=== PATIENT | female | born 1980 | race Caucasian/White ===

== ENCOUNTER 2017-09-10 05:46 | Inpatient (IN) | payer OTHER ==
--- NOTE | 2017-08-25 13:15 | GHP ---
[f rep st] PREOP HISTORY AND PHYSICAL DATE OF ADMISSION: 09/10/2017 CURRENT COMPLAINTS: Right hip pain. HISTORY OF PRESENT ILLNESS: The patient is a 36-year-old female with significant left hip pain, wors ening with use and with time, despite multiple conservative measures to include prior surgeries. She wished to have surgery in order to resolve the problem. ALLERGIES: Include amoxicillin, cephalexin, latex, penicillins and Singulair. MEDICATION: Include bupropion, amphetamine, ibuprofen, nitrofurantoin, ProAir, valacyclovir, Ventoli n and Zyrtec. MEDICAL PROBLEMS: Include arthritis, asthma. PRIOR SURGERIES: Include a x3, orthopedic surgery x3 with ACL, excision of the hand cyst a nd other surgery x4. SOCIAL HISTORY: She is a former smoker. Social drinker. PHYSICAL EXAMINATION: HEENT: The pupils are equal, round, and reactive to light. CHEST: Clear to auscultation. HEART: Regular rate and rhythm. ABDOMEN: Soft and nontender. HIPS: Her hip has si gnificant decrease in range of motion, particularly to internal and external rotation. She is neurol ogically intact distally. IMAGING: X-ray exam reveals [id number] osteoarthritic changes, as well as dysplasia. ASSESSMENT/PLAN: Patient is status post right hip osteoarthritis. Plan is to take her to the operat ing room to undergo a right total hip arthroplasty. /[id number]/MODL
[2017-09-10] MEDS ORDERED: LR 1,000 ML IV ONE (06:31)
[2017-09-10] MEDS ORDERED: LIDOCAINE 1% 2 ML INJ ID PRN (06:34)
[2017-09-10] MEDS ORDERED: MIDAZOLAM 2 MG/2 ML VIAL IVP ONE (06:56)
[2017-09-10] MEDS ORDERED: BUPIVACAINE/EPI 0.5% 30 ML SDV ONE (06:58)
[2017-09-10] MEDS ORDERED: TRANEXAMIC ACID 3,000 MG/50 ML BAG IRR ONE (06:58)
[2017-09-10] MEDS ORDERED: THROMBIN (BOVINE) 5,000 UNIT VIAL TP ONE (06:58)
[2017-09-10] MEDS ORDERED: CALCIUM CHLORIDE 1 GM/10 ML INJ ONE (06:58)
[2017-09-10] MEDS ORDERED: POLYMYXIN B SULFATE 500,000 UNIT/10 ML SYR IRR ONE (06:59)
[2017-09-10] MEDS ORDERED: BACITRACIN 50,000 UNITS/10 ML SYR IRR ONE (06:59)
--- NOTE | 2017-09-10 07:05 | PDANEPAE ---
ANE History of Present Illness here for R AKOSUA ANE Past Medical History - Cardiovascular History Hx Hypertension: No Hx Arrhythmias: No Hx Chest Pain: No Hx Coronary Artery / Peripheral Vascular Disease: No Hx CHF / Valvular Disease: No Hx Palpitations: No - Pulmonary History Hx COPD: No Hx Asthma/Reactive Airway Disease: Yes Hx Recent Upper Respiratory Infection: No Hx Oxygen in Use at Home: No Hx Sleep Apnea: No Sleep Apnea Screening Result - Last Documented: Negative Pulmonary History Comment: allergy induced asthma managed w/inhaler - Neurologic History Hx Cerebrovascular Accident: No Hx Seizures: No Hx Dementia: No - Endocrine History Hx Diabetes: No - Renal History Hx Renal Disorders: No Renal History Comment: tx for UTI in - Liver History Hx Hepatic Disorders: No - Neurological & Psychiatric Hx Hx Neurological and Psychiatric Disorders: Yes Neurological / Psychiatric History Comment: ADHD -well managed w/RX - Cancer History Hx Cancer: No - Congenital Disorder History Hx Congenital Disorders: No - GI History Hx Gastrointestinal Disorders: No - Other Health History Other Health History: R hip pain,OA L hip,bilat knees - Chronic Pain History Chronic Pain: Yes (R hip) - Surgical History Prior Surgeries: meniscal repair. patella sx. hardware removal (patella). lap hortensia. UPPP. R hip labral repair. ACL -bilat x2. lipoma wrist excision. C Section x3. D and C ANE Review of Systems Review of systems is: negative Review of Systems: - Exercise capacity Exercise capacity: >=4 METS METS (RN): 4 METS ANE Patient History - Allergies Allergies/Adverse Reactions: cephalexin [From Keflex] Allergy (Intermediate, Verified 09/10/17 06:14) Other-Enter Comments latex [Latex] Allergy (Intermediate, Verified 09/10/17 06:14) Other-Enter Comments montelukast [From Singulair] Allergy (Intermediate, Verified 09/10/17 06:14) Hives Coban Allergy (Intermediate, Uncoded 09/10/17 06:20) Other-Enter Comments - Home Medications Home medications: home medication list seen and reviewed Home Medications: Albuterol Hfa Anes Only [Proair Hfa Icu (*)] 1 - 2 puffs IH QID PRN 08/23/17 [ Last Taken 09/10/17 05:45] Cetirizine [ZyrTEC 10 mg (*)] 10 mg PO DAILY 08/23/17 [Last Taken 09/10/17 05:45 ] Herbals/Supplements -Info Only 1 ea PO DAILY 08/23/17 [Last Taken 2 Weeks Ago ~ 08/27/17] Ibuprofen [Motrin (*)] 800 mg PO Q6 PRN 08/23/17 [Last Taken 09/01/17] Lisdexamfetamine Dimesylate [Vyvanse] 60 mg PO DAILY 08/23/17 [Last Taken ] [place]-3 Fatty Acids [Fish Oil 1000 mg (*)] 2,000 mg PO DAILY 08/23/17 [Last Taken 2 Weeks Ago ~08/27/17] buPROPion XL [Wellbutrin Xl] 450 mg PO DAILY 08/23/17 [Last Taken 09/09/17] traMADol [Ultram 50 mg (*)] 09/10/17 [Last Taken 09/09/17] - NPO status NPO Since - Liquids (Date): 09/09/17 NPO Since - Liquids (Time): 21:45 NPO Since - Solids (Date): 09/09/17 NPO Since - Solids (Time): 19:00 - Smoking Hx Smoking Status: Former smoker ANE Labs/Vital Signs - Vital Signs Vital Signs: reviewed preoperatively; see RN documention for details Blood Pressure: 123/92 Heart Rate: 96 Respiratory Rate: 16 O2 Sat (%): 96 Height: 167.64 cm Weight: 81.647 kg ANE Physical Exam - Airway Neck exam: FROM Mallampati Score: Class 1 - Pulmonary Pulmonary: no respiratory distress - Cardiovascular Cardiovascular: regular rate and rhythym - ASA Status ASA Status: II ANE Anesthesia Plan Anesthesia Plan: MAC, spinal
[2017-09-10] MEDS ORDERED: fentaNYL 100 MCG/2 ML INJ ONE ×4 (07:09→11:05)
[2017-09-10] MEDS ORDERED: PROPOFOL/EMULSION 500 MG/50 ML BOTTLE IV ONE ×2 (07:10→08:13)
[2017-09-10] MEDS ORDERED: PREGABALIN 150 MG CAP PO ONE (07:13)
[2017-09-10] MEDS ORDERED: TRANEXAMIC ACID 3,000 MG in NS (SYRINGE) 50 ML IRR ONE (07:13)
[2017-09-10] MEDS ORDERED: VANCOMYCIN PHARMACY TO DOSE MISC ONE (07:13)
[2017-09-10] MEDS ORDERED: ACETAMINOPHEN 500 MG TAB PO ONE (07:13)
[2017-09-10] MEDS ORDERED: ROPIVACAINE 0.2% 80 MG, EPINEPHrine 0.2 MG, KETOROLAC TROMETHAMINE 30 MG, morphINE 10 M... IU ONE (07:13)
--- NOTE | 2017-09-10 07:13 | PDHPUP ---
History & Physical Update H&P update statement: This history and physical update is based on an assessment of the patient which was completed after admission or registration (within 24 hours), but prior to the surgery/procedure. H&P update: H&P reviewed & patient examined, no change in patient's condition since H&P completed
[2017-09-10] MEDS ORDERED: ALBUTEROL 60 PUFFS/8 GM MDI IH PRN (07:14)
[2017-09-10] MEDS ORDERED: BUPI/epINEPH/KETOROLAC/morphINE IU ONE (07:30)
[2017-09-10] MEDS ORDERED: VANCOMYCIN 1.25 GM in NS 250 ML IV ONE (07:30)
[2017-09-10] MEDS ORDERED: ONDANSETRON 4 MG/2 ML VIAL IVP PRN ×2 (08:07→09:43)
[2017-09-10] MEDS ORDERED: PROMETHAZINE HCL 25 MG/ML INJ IVP PRN ×2 (08:07→09:43)
[2017-09-10] MEDS ORDERED: DEXAMETHASONE 4 MG/ML VIAL IVP PRN (08:07)
[2017-09-10] MEDS ORDERED: ALBUTEROL 3 ML DEYVIAL IH PRN (08:07)
[2017-09-10] MEDS ORDERED: NALOXONE HCL 0.4 MG/ML INJ IVP PRN (08:07)
[2017-09-10] MEDS ORDERED: LR 500 ML IV PRN (08:07)
[2017-09-10] MEDS ORDERED: CETIRIZINE 10 MG TAB PO SCH (09:00)
[2017-09-10] MEDS ORDERED: PROPOFOL 200 MG/20 ML VIAL ONE ×2 (09:09→09:52)
[2017-09-10] MEDS ORDERED: PROMETHAZINE HCL 25 MG SUPPR PR PRN (09:43)
[2017-09-10] MEDS ORDERED: LACTULOSE 20 GM/30 ML UDCUP PO PRN (09:43)
[2017-09-10] MEDS ORDERED: MAGNESIUM HYDROXIDE 30 ML UDCUP PO PRN (09:43)
[2017-09-10] MEDS ORDERED: BISACODYL 10 MG SUPP PR PRN (09:43)
[2017-09-10] MEDS ORDERED: ONDANSETRON DISINTEGRATING 4 MG TAB PO PRN (09:43)
[2017-09-10] MEDS ORDERED: DIPHENOXYLATE/ATROPINE LOMOTIL 1 TAB PO PRN (09:43)
[2017-09-10] MEDS ORDERED: diphenhydrAMINE 25 MG CAP PO PRN (09:43)
[2017-09-10] MEDS ORDERED: TEMAZEPAM 15 MG CAP PO PRN (09:43)
[2017-09-10] MEDS ORDERED: METOCLOPRAMIDE 10 MG/2 ML VIAL IVP PRN (09:43)
[2017-09-10] MEDS ORDERED: POLYETHYLENE GLYCOL 3350 17 GM PKT PO PRN (09:43)
[2017-09-10] MEDS ORDERED: TAPENTADOL HCL 50 MG TAB PO PRN (09:43)
--- NOTE | 2017-09-10 09:43 | POSTOPPROG ---
Post Op Note Date of Operation: 09/10/17 Surgeon: Belgica Thakur Propagation Worker: coltrain Anesthesia: Epidural, IV Sedation Pre-op Diagnosis: r hip oa Procedure: r armando Inf/Abcess present in the surg proc area at time of surgery?: No Depth: Deep Incisional (Fascial) EBL: 100-500
[2017-09-10] MEDS ORDERED: LR 1,000 ML IV SCH (10:00)
[2017-09-10] MEDS ORDERED: HYDROmorphONE/DILAUDID 2 MG/ML INJ ONE (10:06)
[2017-09-10] MEDS: fentaNYL 100 MCG/2 ML INJ IVP PRN ×3 (10:09→11:06)
[2017-09-10] MEDS: HYDROmorphONE/DILAUDID 2 MG/ML INJ IVP PRN ×5 (10:13→11:07)
[2017-09-10] MEDS ORDERED: DIAZEPAM 5 MG/ML 1 ML SYR ONE (10:29)
[2017-09-10] MEDS: DIAZEPAM 5 MG/ML 1 ML SYR IVP PRN ×2 (10:37→10:47)
--- NOTE | 2017-09-10 10:49 | GOP ---
[f rep st] OPERATIVE REPORT DATE OF OPERATION: 09/10/2017 SURGEON: Belgica Thakur MD TEAM PSYCHOLOGIST: Keron Haq, CSFA, LSA whose presence was medically necessary. ANESTHESIA: Epidural plus IV sedation. PREOPERATIVE DIAGNOSIS: Right hip osteoarthritis. POSTOPERATIVE DIAGNOSIS: Right hip osteoarthritis. PROCEDURE PERFORMED: Right total hip arthroplasty with fluoroscopy. FINDINGS: INDICATIONS: This is a 36-year-old female with a several year history of right hip pain worsening wi th use and with time. MRI exams revealed multiple spots of significant osteoarthritic changes to the femur and acetabulum. She wished to have surgery in order to resolve the problem. DESCRIPTION OF PROCEDURE: Patient brought to the operating room after the right side had been identi fied as the correct side by the patient and nurse physician once in the operating room. She was give n epidural nerve block and then placed on a traction table with well-padded perineal post. Both legs placed in appropriate leg garrett. Fluoroscopy was used to ensure proper positioning of the pelvis o n the table and to check our leg lengths. Once in position, the arch table was locked into place and the right hip and flank were sterilely prepped and draped in usual fashion using GSI solution. Once prepped and draped, incision was made starting 2 cm lateral and inferior to the ASIS and extending i n a 15-degree posterior direction, with sharp dissection carried down through the skin and subcutaneo us layers with bleeding controlled using electrocautery. Incision was made over the fascia of the TF L with the muscle belly retracted laterally. The circumflex vessels at the bottom of the fascial she ath were cauterized, deeper dissection was carried down onto the hip capsule, with a blunt Cobra retr actor placed in superior and inferior portion of the femoral neck. The anterior capsule was removed in its entirety. An oscillating saw was used to cut across the femoral neck just above the intertroc hanteric line. The leg was externally rotated to 40 degrees and a corkscrew was used to remove the f emoral head. A curette was used to remove the pulvinar at the base of the acetabulum with a rongeur and a Bovie used to remove the acetabular labrum. Once completed, sequential reamers were used up to a size 54 which was noted to get good bleeding bone. A 53 trial was put in place and noted to fit s ecurely. This position was checked under fluoroscopy. Once in proper position a 54 DePuy cuff was p ut into place with screws placed in the posterior and superior portions of the acetabular shell at wh ich point, a 36 x 54 ceramic liner was put into place and noted to fit securely. Attention was then turned to the proximal femur which externally rotated 90 degrees. Soft tissue dissection was done of the anterior and superior portion of the femoral neck. Once achieving adequate capsular release, it was able to be dropped into extension and abduction. Curette was used to remove the medullary bone from the proximal portion of the femur and a rongeur was used to remove the superior portion of the f emoral neck. A canal finder was passed into the femoral canal. Then sequential broaches were used u p to a size 4 which was noted to fit securely. Trial reduction was performed. Noted to have good fi ll of proximal femur with good lengthening. Therefore the leg was redislocated, trial was removed an d then a 4 collared stem from [employer] was put into place, noted to fit securely. Another trial reducti on was performed. Noted to have good leg lengths. Therefore, the leg was re-dislocated with a 36+ 1 .5 mm head put onto the stem after the stem had been washed and dried. Once in position, the leg was re-located put into place. Tranexamic acid was irrigated through the wound. The wound was then amish sed in layers to include 0 Vicryl suture for the fascia overlying the TFL with plasma gel placed intr a-articularly. 0 Vicryl and 2-0 Vicryl suture used for the subcutaneous layers and a 3-0 V-Loc sutur e in a running subcuticular stitch for the skin. The wound was dressed with Steri-Strips, Xeroform, 4 x 4, and Tegaderm. The patient was completely undraped in the operating room. The legs were taken out of the leg garrett. Peroneal post was removed. Leg lengths were noted to be equal. She was the n transferred onto a bed, and sent to recovery room in good condition. /[id number]/MODL
--- NOTE | 2017-09-10 11:02 | PDMN ---
Medical Necessity Medical necessity: S560 hip arthroplasty- INPT only R AKOSUA
[2017-09-10] MEDS: KETOROLAC 30 MG/1 ML SDV IVP PRN (11:58)
[2017-09-10] MEDS: traMADol 50 MG TAB PO SCH ×3 (11:59→23:34)
[2017-09-10] MEDS: ACETAMINOPHEN 325 MG TAB PO SCH ×3 (11:59→23:34)
[2017-09-10] MEDS: CYCLOBENZAPRINE 10 MG TAB PO PRN (12:20)
[2017-09-10] MEDS: buPROPion XL 150 MG TAB PO SCH (14:04)
[2017-09-10] MEDS: Lisdexamfetamine Dimesylate [Vyvanse] 60 MG PO SCH (14:05)
--- NOTE | 2017-09-10 15:34 | POSTANESTH ---
Post Anesthetic Evaluation Cardiovascular Status: Normal, Stable Respiratory Status: Normal, Stable Level of Consciousness/Mental Status: Mildly Sleepy, Arousable Pain Control: Adequate, Prn Tx Ordered Nausea/Vomiting Control: Adequate, Prn Tx Ordered Complications Possibly Related to Anesthesia: None Noted (resting comfortably, pain controlled)
[2017-09-10] MEDS: FAMOTIDINE 20 MG TAB PO SCH (19:44)
[2017-09-10] MEDS: oxyCODONE IR 5 MG TAB PO PRN ×2 (19:45→23:34)
[2017-09-10] MEDS: SENNOSIDES/DOCUSATE SODIUM TAB PO SCH (19:45)
[2017-09-10] MEDS ORDERED: VANCOMYCIN 1.25 GM in NS 250 ML IV SCH (20:00)
[2017-09-11] MEDS ORDERED: ALBUTEROL HFA ANES ONLY 200 PUFFS/8.5 GM MDI IH PRN (00:30)
[2017-09-11] MEDS: traMADol 50 MG TAB PO SCH ×2 (04:34→11:05)
[2017-09-11] MEDS: oxyCODONE IR 5 MG TAB PO PRN ×3 (04:34→11:03)
[2017-09-11] MEDS: KETOROLAC 30 MG/1 ML SDV IVP PRN ×2 (04:38→11:00)
[2017-09-11] MEDS: ACETAMINOPHEN 325 MG TAB PO SCH ×2 (05:46→07:46)
[2017-09-11] MEDS ORDERED: PNEUMOCOCCAL 0.5ML VACCINE VIAL IM ONE (07:20)
[2017-09-11] MEDS: buPROPion XL 150 MG TAB PO SCH (07:37)
[2017-09-11] MEDS: SENNOSIDES/DOCUSATE SODIUM TAB PO SCH (07:37)
[2017-09-11] MEDS: FAMOTIDINE 20 MG TAB PO SCH (07:38)
[2017-09-11 08:15] VITALS: BP 120/65
[2017-09-11] MEDS: Lisdexamfetamine Dimesylate [Vyvanse] 60 MG PO SCH (08:31)
[2017-09-11] MEDS: CYCLOBENZAPRINE 10 MG TAB PO PRN (08:34)
[2017-09-11] MEDS ORDERED: RIVAROXABAN 10 MG TAB PO SCH (09:00)
[2017-09-11] MEDS ORDERED: CETIRIZINE 10 MG TAB PO SCH (09:00)
--- NOTE | 2017-09-11 10:01 | SOAPPROG ---
SHADI Progress Note Assessment/Plan: Assessment: Plan: - d/c home 09/11/17 10:00 Subjective: Pt doing well, would like to d/c home today Objective: Vital Signs Temp Pulse Resp BP Pulse Ox 36.7 C 90 16 120/65 94 09/11/17 08:00 09/11/17 08:00 09/11/17 08:00 09/11/17 08:00 09/11/17 08:00 Laboratory Results 09/11/17 04:22 09/10/17 09/11/17 09/12/17 05:59 05:59 05:59 Intake Total 1920 200 Output Total 1275 Balance 645 200 wound cdi, nvi, - Time Spent With Patient Time Spent With Patient: 15 - Pending Discharge Pending Discharge Within 24 Hours: Yes Pending Discharge Within 48 Hours: No Pending Discharge Date: 09/12/17 Pending Discharge Time: 11:00 ICD10 Worksheet Patient Problems: Problems Problem Status Onset Arthritis of right hip Acute - ICD10 Problem Qualifiers (1) Arthritis of right hip
--- NOTE | 2017-09-11 10:03 | PDIAF ---
- Diagnosis Code Status: Full Code - Medication Management Discharge Medications: Medications to Continue on Transfer Albuterol Hfa Anes Only [Proair Hfa Icu (*)] 1 - 2 puffs IH QID PRN 08/23/17 [ Last Taken 09/10/17 05:45] Cetirizine [ZyrTEC 10 mg (*)] 10 mg PO DAILY 08/23/17 [Last Taken 09/10/17 05:45 ] Herbals/Supplements -Info Only 1 ea PO DAILY 08/23/17 [Last Taken 2 Weeks Ago ~ 08/27/17] Ibuprofen [Motrin (*)] 800 mg PO Q6 PRN 08/23/17 [Last Taken 09/01/17] Lisdexamfetamine Dimesylate [VYVANSE] 60 mg PO DAILY 08/23/17 [Last Taken ] [place]-3 Fatty Acids [Fish Oil 1000 mg (*)] 2,000 mg PO DAILY 08/23/17 [Last Taken 2 Weeks Ago ~08/27/17] buPROPion XL [Wellbutrin 150mg XL] 450 mg PO DAILY 08/23/17 [Last Taken 09/09/17 ] traMADol [Ultram 50 mg (*)] 50 mg PO BID PRN 09/10/17 [Last Taken 09/09/17] Acetaminophen [Tylenol 325mg (*)] 650 mg PO Q6HRS tab 09/11/17 [Last Taken Unknown] Rivaroxaban [Xarelto 10mg (*)] 10 mg PO DAILY tab 09/11/17 [Last Taken Unknown] oxyCODONE IR [Oxycodone Ir (*)] 5 - 10 mg PO Q3HRS PRN tab 09/11/17 [Last Taken Unknown] Discharge Medications: Refer to the Discharge Home Medication list for PRN reason. - Orders Services needed: Physical Therapy Diet Recommendation: no restrictions on diet Diet Texture: Regular Texture Diet [place]: Not applicable Wound Care Instructions: keep dressing on, may shower - Follow Up Care Current Providers and Referrals: Katarzyna Rubio MD [Primary Care Provider] -
--- NOTE | 2017-09-11 11:33 | ASMTCMCOM ---
CM Note CM Note Notes: Pt medically stable for d/c with family support. PT rec home. No CM d/c needs identified. Date Signed: 09/11/2017 11:33 AM Electronically Signed By:ELIZA Swenson
--- NOTE | 2017-09-11 11:36 | ASMTLACE ---
[facility] Length of stay for Answers: 1 day current admission Acuity / Level of Answers: Yes Care: Did the patient have an inpatient admission? # of Emergency department Answers: 0 visits in the last 6 months Score: 4 Date Signed: 09/11/2017 11:36 AM Electronically Signed By:ELIZA Swenson
== END 2017-09-11 11:36 | disposition home or self-care (01) | DRG 470 ==
LOC: F3N 05:46 → OBSVTOIN 05:46 → EDSTATUS 07:15 → F3N 11:52
PROVIDERS: ADMIT Orthopaedic Surgery; ATTEND Orthopaedic Surgery
PROC: 0SR903A Replacement of Right Hip Joint with Ceramic Synthetic Substitute, Uncemented, Open Approach (ICD-10-PCS; principal; 2017-09-10 07:15)
PROC: BQ101ZZ Fluoroscopy of Right Hip using Low Osmolar Contrast (ICD-10-PCS; 2017-09-10 07:15)
DX: M16.11 Unilateral primary osteoarthritis, right hip (principal); J45.909 Unspecified asthma, uncomplicated; Z87.891 Personal history of nicotine dependence; Z79.51 Long term (current) use of inhaled steroids
CPT/HCPCS: 97110-GP; 97116-GP; 97161-GP; 97165-GO; C1713; J0171; J1170; J1885; J2250; J2270; J2704; J2795; J3010; J3360; J3370